=== PATIENT | male | born 1945 | race Caucasian/White ===

== ENCOUNTER → 2018-07-06 07:11 | Outpatient (CLI) | payer MEDICARE, OTHER ==
[2018-07-10 14:11] LABS: SPE - A/G RATIO 0.9 (0.7-1.7); SPE - ALBUMIN 3.9 g/dL (2.9-4.4); SPE - ALPHA-1 GLOBULIN 0.2 g/dL (0.0-0.4); SPE - ALPHA-2 GLOBULIN 0.5 g/dL (0.4-1.0); SPE - BETA GLOBULIN 0.7 g/dL (0.7-1.3); SPE - M-SPIKE 2.1 g/dL (Not Observed); SPE - TOTAL PROTEIN 8.3 g/dL (6.0-8.5)
== END | disposition home or self-care (01) ==
LOC: D.LAB 07:11
PROVIDERS: ATTEND Family Medicine
DX: E88.09 Other disorders of plasma-protein metabolism, not elsewhere classified (principal)